=== PATIENT | male | born 1955 | race African-American/Black ===

== ENCOUNTER 2018-02-23 12:34 | Inpatient (IN) | payer BC, MEDICARE ==
[~2018-02-23] VITALS: Ht 170.2 cm; Wt 86.4 kg
[2018-02-23] MEDS ORDERED: LORAZEPAM 1MG TABLET PO ONE (13:15)
[2018-02-23] MEDS ORDERED: LORAZEPAM 2MG/ML CPJ IV ONE (15:00)
[2018-02-23] MEDS ORDERED: ENALAPRIL 2.5MG/2ML VIAL 2ML IV ONE (15:00)
[2018-02-23 15:30] LABS: CHLORIDE 103 mEq/L (98-107)
[2018-02-23 15:33] LABS: BASOPHILS % 0.3 % (0.0-2.0); EOSINOPHILS % 0.2 % (0.0-5.0); HEMATOCRIT. 37.4 % (42.0-52.0); HEMOGLOBIN. 12.6 g/dL (14.0-18.0); LYMPHOCYTES % 15.8 % (20.0-50.0); MEAN CORPUSCULAR VOLUME 79.9 fL (80.0-94.0); MONOCYTES % 7.8 % (2.0-8.0); NEUTROPHILS % 75.9 % (40.0-76.0); PLATELET 279 x1000/uL (130-400); RED BLOOD CELL COUNT 4.68 mill/uL (4.7-6.1); RED CELL DISTRIBUTION WIDTH 14.4 % (11.6-14.6)
[2018-02-23] MEDS ORDERED: ASPIRIN 81MG TABLET PO ONE (16:30)
[2018-02-23 16:54] LABS: INR 1.1; PARTIAL THROMBOPLASTIN TIME 26.4 sec (23.4-31.0); PROTHROMBIN TIME 10.8 sec (9.1-11.1)
[2018-02-23] MEDS ORDERED: IPRATROPIUM/ALBUTEROL 0.5-3(2.5)MG/3ML NEB INH PRN (17:30)
[2018-02-23] MEDS ORDERED: NA PHOS,M-B/NA PHOS,DI-BA ENEMA 118ML PR PRN (17:30)
[2018-02-23] MEDS ORDERED: DEXTROSE 50% WATER 50ML SYRINGE IV PRN (17:30)
[2018-02-23] MEDS ORDERED: GUAIFENESIN 200MG/10ML SUGAR FREE UDC PO PRN (17:30)
[2018-02-23] MEDS ORDERED: DOCUSATE SODIUM 100MG CAPSULE PO PRN (17:30)
[2018-02-23] MEDS ORDERED: NITROGLYCERIN 0.4MG TABLET SL SL PRN (17:30)
[2018-02-23] MEDS ORDERED: CLONIDINE 0.1MG TABLET PO PRN (17:30)
[2018-02-23] MEDS ORDERED: ONDANSETRON HCL 4MG/2ML INJ IV PRN (17:30)
[2018-02-23] MEDS ORDERED: LORAZEPAM 0.5MG TABLET PO PRN (17:30)
[2018-02-23] MEDS ORDERED: MAGNESIUM/ALUMINUM HYDROXIDE/SIMETHICONE 30ML UDC PO PRN (17:30)
[2018-02-23] MEDS: TRAMADOL 50MG TABLET PO PRN (18:58)
[2018-02-23 19:07] LABS: FOLIC ACID (FOLATE) SERUM >20 ng/mL ng/mL (>5.38)
[2018-02-23 19:18] LABS: VITAMIN B12 SERUM 1218 pg/mL (211-911)
[2018-02-23 19:41] LABS: METHADONE URINE SCREEN NEGATIVE (NEGATIVE); OPIATES URINE SCREEN PRESUMTIVE POSITIVE (NEGATIVE); PHENCYCLIDINE URINE SCREEN NEGATIVE (NEGATIVE)
[2018-02-23 19:42] LABS: *AMPHETAMINES SCREEN URINE NEGATIVE (NEGATIVE); *BARBITURATES SCREEN URINE NEGATIVE (NEGATIVE); *BENZODIAZEPINES SCREEN URINE NEGATIVE (NEGATIVE); *COCAINE SCREEN URINE NEGATIVE (NEGATIVE); CANNABINOID URINE SCREEN PRESUMTIVE POSITIVE (NEGATIVE)
[2018-02-23 22:00] VITALS: BP 176/81
[2018-02-23] MEDS: INSULIN LISPRO 100 UNITS/ML SUBCUT SCH (22:00)
[2018-02-23] MEDS ORDERED: ZOLPIDEM TARTRATE 5MG TABLET PO PRN (22:00)
[2018-02-23] MEDS: AMLODIPINE 10MG TABLET PO SCH (22:45)
[2018-02-23] MEDS: METOPROLOL TARTRATE 25MG TABLET PO SCH (22:45)
[2018-02-23] MEDS: HYDRALAZINE HCL 50MG TABLET PO SCH (22:45)
[2018-02-23] MEDS: ENOXAPARIN 30MG/0.3ML SYR SUBCUT SCH (22:46)
[2018-02-23] MEDS: BLOOD SUGAR DIAGNOSTIC STRIP TEST SCH (22:46)
[2018-02-23 23:47] LABS: CREATINE KINASE MB FRACTION 3.5 ng/mL (0.5-3.6)
[2018-02-23 23:58] LABS: CREATINE KINASE 1471 IU/L (39-308)
[2018-02-24] VITALS: BP_SYST 137; BP_SYST 177; BP_DIAS 78; BP_DIAS 87
[2018-02-24 04:00] VITALS: BP 170/77
[2018-02-24] MEDS: TRAMADOL 50MG TABLET PO PRN (04:03)
[2018-02-24] MEDS: BLOOD SUGAR DIAGNOSTIC STRIP TEST SCH ×4 (06:30→21:24)
[2018-02-24] MEDS: HYDRALAZINE HCL 50MG TABLET PO SCH ×3 (06:30→22:23)
[2018-02-24] MEDS: INSULIN LISPRO 100 UNITS/ML SUBCUT SCH ×4 (06:31→21:35)
[2018-02-24 08:00] VITALS: BP 165/81
[2018-02-24] MEDS: LORAZEPAM 1MG TABLET PO PRN ×2 (08:22→17:32)
[2018-02-24 08:35] LABS: CREATINE KINASE MB FRACTION 2.6 ng/mL (0.5-3.6)
[2018-02-24 08:47] LABS: CREATINE KINASE 1059 IU/L (39-308)
[2018-02-24] MEDS ORDERED: ASPIRIN 325MG EC TABLET PO SCH (09:00)
[2018-02-24] MEDS: METOPROLOL TARTRATE 25MG TABLET PO SCH ×2 (09:14→20:26)
[2018-02-24] MEDS: AMLODIPINE 10MG TABLET PO SCH (09:14)
[2018-02-24] MEDS: ENOXAPARIN 30MG/0.3ML SYR SUBCUT SCH (09:15)
[2018-02-24 12:00] VITALS: BP 143/67
[2018-02-24] MEDS: ACETAMINOPHEN 325MG TABLET PO PRN ×2 (12:51→19:14)
[2018-02-24 16:00] VITALS: BP 143/65
[2018-02-24 20:00] VITALS: BP 160/91
[2018-02-25] VITALS (40 sets, daily range): BP systolic 86–185; BP diastolic 41–143
[2018-02-25] MEDS: ACETAMINOPHEN 325MG TABLET PO PRN (04:57)
[2018-02-25] MEDS: HYDRALAZINE HCL 50MG TABLET PO SCH ×2 (06:52→13:25)
[2018-02-25] MEDS: BLOOD SUGAR DIAGNOSTIC STRIP TEST SCH ×2 (06:56→11:30)
[2018-02-25] MEDS: INSULIN LISPRO 100 UNITS/ML SUBCUT SCH ×2 (07:04→13:25)
[2018-02-25 07:28] LABS: BASOPHILS % 0.4 % (0.0-2.0); EOSINOPHILS % 0.5 % (0.0-5.0); HEMATOCRIT. 37.7 % (42.0-52.0); HEMOGLOBIN. 12.4 g/dL (14.0-18.0); LYMPHOCYTES % 17.7 % (20.0-50.0); MEAN CORPUSCULAR HEMOGLOBIN 26.5 pg (28.0-32.0); MEAN CORPUSCULAR VOLUME 80.5 fL (80.0-94.0); MONOCYTES % 9.6 % (2.0-8.0); NEUTROPHILS % 71.8 % (40.0-76.0); PLATELET 303 x1000/uL (130-400); RED BLOOD CELL COUNT 4.69 mill/uL (4.7-6.1); RED CELL DISTRIBUTION WIDTH 14.3 % (11.6-14.6)
[2018-02-25 07:47] LABS: CHLORIDE 102 mEq/L (98-107)
[2018-02-25] MEDS ORDERED: ENOXAPARIN 30MG/0.3ML SYR SUBCUT SCH (09:00)
[2018-02-25] MEDS: METOPROLOL TARTRATE 25MG TABLET PO SCH (09:00)
[2018-02-25] MEDS: AMLODIPINE 10MG TABLET PO SCH (10:25)
[2018-02-25] MEDS ORDERED: NICARDIPINE 100 MG in SODIUM CHLORIDE 0.9% 60 ML IV PRN ×2 (10:30→11:30)
[2018-02-25] MEDS ORDERED: DEXT 5%/LACTATED RINGERS 1,000 ML IV SCH (10:30)
[2018-02-25] MEDS: MORPHINE SULFATE 10 MG/ML CPJ IV PRN ×2 (10:41→14:50)
[2018-02-25] MEDS ORDERED: LEVETIRACETAM 500 MG in SODIUM CHLORIDE 0.9% 100 ML IV SCH (11:30)
[2018-02-25] MEDS ORDERED: FAMOTIDINE 20MG/2ML VIAL IV NR (16:15)
== END 2018-02-25 17:30 | disposition short-term general hospital (02) | DRG 64 ==
LOC: ER 12:56 → 5WST 16:30 → EDBEDREQ 16:34 → ENRESERV 19:56 → 5WST 02-24 08:36 → MICUSO 02-25 09:39
PROVIDERS: ADMIT Internal Medicine; ATTEND Internal Medicine
DX: I60.9 Nontraumatic subarachnoid hemorrhage, unspecified (principal); G82.50 Quadriplegia, unspecified; N17.9 Acute kidney failure, unspecified; M62.82 Rhabdomyolysis; I69.351 Hemiplegia and hemiparesis following cerebral infarction affecting right dominant side; N18.4 Chronic kidney disease, stage 4 (severe); F41.0 Panic disorder [episodic paroxysmal anxiety]; E11.65 Type 2 diabetes mellitus with hyperglycemia; D63.8 Anemia in other chronic diseases classified elsewhere; Z79.4 Long term (current) use of insulin; E11.22 Type 2 diabetes mellitus with diabetic chronic kidney disease; E78.00 Pure hypercholesterolemia, unspecified; E78.5 Hyperlipidemia, unspecified; F10.20 Alcohol dependence, uncomplicated; F32.9 Major depressive disorder, single episode, unspecified; G93.89 Other specified disorders of brain; I13.10 Hypertensive heart and chronic kidney disease without heart failure, with stage 1 through stage 4 chronic kidney disease, or unspecified chronic kidney disease; I25.10 Atherosclerotic heart disease of native coronary artery without angina pectoris; R26.9 Unspecified abnormalities of gait and mobility; Z79.899 Other long term (current) drug therapy; Z82.3 Family history of stroke; Z98.61 Coronary angioplasty status
CPT/HCPCS: 36415; 70544; 70551; 71045; 76770; 80048; 80061; 80305; 82550; 82553; 82607; 82746; 82962; 83036; 83540; 83550; 83880; 84443; 84484; 93005; 93306; 93970; 94640; 96374; 96375; 99285; J1650; J1815; J1953; J2060; J2270; J3490; J7050; J7121; J7620

== ENCOUNTER 2018-09-07 15:10 | Emergency (ER) | payer BC, MEDICARE ==
[~2018-09-07] VITALS: Ht 177.8 cm; Wt 86.0 kg
[2018-09-07] MEDS ORDERED: SODIUM CHLORIDE 0.9% 1,000 ML IV ONE (15:36)
[2018-09-07] MEDS ORDERED: LORAZEPAM 2MG/ML CPJ IV STA (15:36)
[2018-09-07 16:10] LABS: CHLORIDE 107 mEq/L (98-107)
[2018-09-07 16:15] LABS: ETHANOL BLOOD < 10 mg/dL
[2018-09-07 16:20] LABS: BASOPHILS % 0.9 % (0.0-2.0); EOSINOPHILS % 4.5 % (0.0-5.0); HEMATOCRIT. 31.5 % (42.0-52.0); HEMOGLOBIN. 10.3 g/dL (14.0-18.0); LYMPHOCYTES % 27.1 % (20.0-50.0); MEAN CORPUSCULAR HEMOGLOBIN 27.5 pg (28.0-32.0); MEAN CORPUSCULAR VOLUME 84.2 fL (80.0-94.0); MEAN PLATELET VOLUME 8.8 fl (7.4-10.4); MONOCYTES % 9.1 % (2.0-8.0); NEUTROPHILS % 58.4 % (40.0-76.0); PLATELET 95 x1000/uL (130-400); RED BLOOD CELL COUNT 3.74 mill/uL (4.7-6.1); RED CELL DISTRIBUTION WIDTH 15.1 % (11.6-14.6)
[2018-09-07 16:37] LABS: CLARITY URINE CLEAR (CLEAR); COLOR URINE YELLOW (YELLOW); KETONES URINE NEGATIVE (NEGATIVE); LEUKOCYTE ESTERASE URINE NEGATIVE (NEGATIVE); NITRITE URINE NEGATIVE (NEGATIVE); OCCULT BLOOD URINE NEGATIVE (NEGATIVE); PROTEIN URINE NEGATIVE (NEGATIVE); SPECIFIC GRAVITY URINE 1.023 (1.005-1.030); UROBILINOGEN URINE 0.2 E.U./dL (0.2-1.0)
[2018-09-07 17:07] LABS: *AMPHETAMINES SCREEN URINE NEGATIVE (NEGATIVE); *BARBITURATES SCREEN URINE NEGATIVE (NEGATIVE); *BENZODIAZEPINES SCREEN URINE NEGATIVE (NEGATIVE); *COCAINE SCREEN URINE NEGATIVE (NEGATIVE); METHADONE URINE SCREEN NEGATIVE (NEGATIVE)
[2018-09-07 17:08] LABS: CANNABINOID URINE SCREEN NEGATIVE (NEGATIVE); OPIATES URINE SCREEN NEGATIVE (NEGATIVE); PHENCYCLIDINE URINE SCREEN NEGATIVE (NEGATIVE)
[2018-09-07] MEDS ORDERED: INSULIN REGULAR (HUMULIN R) 300UNITS/3ML SUBCUT ONE (18:15)
[2018-09-07 21:31] VITALS: BP 157/81
== END 2018-09-07 22:19 | disposition home or self-care (01) ==
LOC: ER 15:10
DX: T42.6X1A Poisoning by other antiepileptic and sedative-hypnotic drugs, accidental (unintentional), initial encounter (principal); E11.65 Type 2 diabetes mellitus with hyperglycemia; N28.9 Disorder of kidney and ureter, unspecified; I11.0 Hypertensive heart disease with heart failure; I50.9 Heart failure, unspecified; F41.9 Anxiety disorder, unspecified; Z86.73 Personal history of transient ischemic attack (TIA), and cerebral infarction without residual deficits; Z98.890 Other specified postprocedural states
CPT/HCPCS: 36415; 80053; 80305; 80307; 80320; 80329; 81003; 85025; 93005; 96361; 96372; 96374; 99284; J1815; J2060; J7030; G0480

== ENCOUNTER 2019-04-20 09:21 | Inpatient (IN) | payer MEDICARE, BC, OTHER ==
[~2019-04-20] VITALS: Ht 167.6 cm; Wt 118.8 kg
[2019-04-20 10:58] LABS: BASOPHILS % 0.4 % (0.0-2.0); EOSINOPHILS % 4.5 % (0.0-5.0); HEMATOCRIT. 30.9 % (42.0-52.0); HEMOGLOBIN. 10.1 g/dL (14.0-18.0); LYMPHOCYTES % 27.2 % (20.0-50.0); MEAN CORPUSCULAR HEMOGLOBIN 26.1 pg (28.0-32.0); MEAN CORPUSCULAR VOLUME 79.5 fL (80.0-94.0); MEAN PLATELET VOLUME 7.9 fl (7.4-10.4); MONOCYTES % 7.9 % (2.0-8.0); PLATELET 200 x1000/uL (130-400); RED BLOOD CELL COUNT 3.88 mill/uL (4.7-6.1); RED CELL DISTRIBUTION WIDTH 15.5 % (11.6-14.6)
[2019-04-20 11:00] LABS: CHLORIDE 107 mEq/L (98-107)
[2019-04-20 11:01] LABS: PROTHROMBIN TIME 10.4 sec (9.6-11.0)
[2019-04-20] MEDS ORDERED: SODIUM CHLORIDE 0.9% 1,000 ML IV ONE (11:33)
[2019-04-20] MEDS ORDERED: DEXTROSE 50% WATER 50ML SYRINGE IV PRN (14:30)
[2019-04-20] MEDS ORDERED: ONDANSETRON HCL 4MG/2ML INJ IV PRN (14:30)
[2019-04-20] MEDS ORDERED: MECLIZINE 25MG TABLET PO PRN (14:30)
[2019-04-20] MEDS ORDERED: ACETAMINOPHEN 325MG TABLET PO PRN (14:30)
[2019-04-20] MEDS: SODIUM CHLORIDE 0.9% 1,000 ML IV SCH ×2 (15:19→18:48)
[2019-04-20] MEDS: BLOOD SUGAR DIAGNOSTIC STRIP TEST SCH ×2 (19:00→21:00)
[2019-04-20] MEDS: INSULIN LISPRO 100 UNITS/ML SUBCUT SCH (22:19)
[2019-04-20] MEDS: LORAZEPAM 2MG/ML CPJ IV PRN (22:21)
[2019-04-21 07:56] LABS: CLARITY URINE CLEAR (CLEAR); COLOR URINE YELLOW (YELLOW); KETONES URINE NEGATIVE (NEGATIVE); LEUKOCYTE ESTERASE URINE NEGATIVE (NEGATIVE); NITRITE URINE NEGATIVE (NEGATIVE); OCCULT BLOOD URINE NEGATIVE (NEGATIVE); PH URINE 6.5 (4.5-8.0); PROTEIN URINE NEGATIVE (NEGATIVE); SPECIFIC GRAVITY URINE 1.014 (1.005-1.030); UROBILINOGEN URINE 0.2 E.U./dL (0.2-1.0)
[2019-04-21 08:05] LABS: BASOPHILS % 0.6 % (0.0-2.0); EOSINOPHILS % 5.4 % (0.0-5.0); HEMATOCRIT. 29.7 % (42.0-52.0); HEMOGLOBIN. 9.9 g/dL (14.0-18.0); LYMPHOCYTES % 26.2 % (20.0-50.0); MEAN CORPUSCULAR HEMOGLOBIN 26.8 pg (28.0-32.0); MEAN CORPUSCULAR VOLUME 80.2 fL (80.0-94.0); MEAN PLATELET VOLUME 7.8 fl (7.4-10.4); NEUTROPHILS % 58.8 % (40.0-76.0); PLATELET 196 x1000/uL (130-400); RED CELL DISTRIBUTION WIDTH 15.8 % (11.6-14.6)
[2019-04-21 08:10] LABS: *AMPHETAMINES SCREEN URINE NEGATIVE (NEGATIVE); *BARBITURATES SCREEN URINE NEGATIVE (NEGATIVE); *BENZODIAZEPINES SCREEN URINE NEGATIVE (NEGATIVE); *COCAINE SCREEN URINE NEGATIVE (NEGATIVE)
[2019-04-21 08:11] LABS: CANNABINOID URINE SCREEN NEGATIVE (NEGATIVE); METHADONE URINE SCREEN NEGATIVE (NEGATIVE); OPIATES URINE SCREEN NEGATIVE (NEGATIVE); PHENCYCLIDINE URINE SCREEN NEGATIVE (NEGATIVE)
[2019-04-21] MEDS: INSULIN LISPRO 100 UNITS/ML SUBCUT SCH ×5 (08:20→21:00)
[2019-04-21] MEDS: BLOOD SUGAR DIAGNOSTIC STRIP TEST SCH ×4 (09:00→21:10)
[2019-04-21 09:21] VITALS: BP 159/75
[2019-04-21] MEDS: ENOXAPARIN 40MG/0.4ML SYR SUBCUT SCH (10:23)
[2019-04-21 12:00] VITALS: BP 141/76
[2019-04-21 16:00] VITALS: BP_SYST 134; BP_SYST 136; BP_SYST 146; BP_DIAS 65; BP_DIAS 78; BP_DIAS 79
[2019-04-21] MEDS: SODIUM CHLORIDE 0.9% 1,000 ML IV SCH (19:02)
[2019-04-21 20:00] VITALS: BP_SYST 140; BP_SYST 146; BP_DIAS 70; BP_DIAS 80
[2019-04-21] MEDS: ATORVASTATIN CALCIUM 40MG TABLET PO SCH ×2 (21:10→21:11)
[2019-04-22] VITALS (8 sets, daily range): BP systolic 115–175; BP diastolic 57–87
[2019-04-22] MEDS: SODIUM CHLORIDE 0.9% 1,000 ML IV SCH ×2 (05:28→20:39)
[2019-04-22 06:48] LABS: BASOPHILS % 0.5 % (0.0-2.0); EOSINOPHILS % 4.2 % (0.0-5.0); HEMATOCRIT. 28.9 % (42.0-52.0); HEMOGLOBIN. 9.6 g/dL (14.0-18.0); LYMPHOCYTES % 25.6 % (20.0-50.0); MEAN CORPUSCULAR HEMOGLOBIN 26.4 pg (28.0-32.0); MEAN CORPUSCULAR VOLUME 79.5 fL (80.0-94.0); MEAN PLATELET VOLUME 7.9 fl (7.4-10.4); MONOCYTES % 10.5 % (2.0-8.0); NEUTROPHILS % 59.2 % (40.0-76.0); PLATELET 204 x1000/uL (130-400); RED BLOOD CELL COUNT 3.64 mill/uL (4.7-6.1); RED CELL DISTRIBUTION WIDTH 15.6 % (11.6-14.6)
[2019-04-22] MEDS: BLOOD SUGAR DIAGNOSTIC STRIP TEST SCH ×4 (07:40→20:39)
[2019-04-22] MEDS: ENOXAPARIN 40MG/0.4ML SYR SUBCUT SCH (08:38)
[2019-04-22] MEDS: INSULIN LISPRO 100 UNITS/ML SUBCUT SCH ×4 (08:40→21:28)
[2019-04-22] MEDS: LORAZEPAM 2MG/ML CPJ IV PRN ×2 (14:22→22:30)
[2019-04-22] MEDS ORDERED: ASPI-1497 PO (19:18)
[2019-04-22] MEDS ORDERED: AMLO10TA80 PO (19:18)
[2019-04-22] MEDS ORDERED: ATOR40TA70 PO (19:18)
[2019-04-22] MEDS ORDERED: DIVA-73 PO (19:18)
[2019-04-22] MEDS ORDERED: FOLI-43 PO (19:18)
[2019-04-22] MEDS ORDERED: INSU100I28 SQ (19:18)
[2019-04-22] MEDS ORDERED: MAGN200T5 PO (19:18)
[2019-04-22] MEDS ORDERED: GABA-290 PO (19:18)
[2019-04-22] MEDS ORDERED: LINA5TAB PO (19:18)
[2019-04-22] MEDS ORDERED: PRAN2 MT (19:18)
[2019-04-22] MEDS ORDERED: OMEG-118 MT (19:18)
[2019-04-22] MEDS ORDERED: MULT-1146 PO (19:18)
[2019-04-22] MEDS ORDERED: PARO30TA62 PO (19:18)
[2019-04-22] MEDS ORDERED: CARV25TA47 PO (19:18)
[2019-04-22] MEDS ORDERED: PANT40TA4 PO (19:18)
[2019-04-22] MEDS ORDERED: THIA100T72 PO (19:18)
[2019-04-22] MEDS ORDERED: FERR325T22 PO (19:18)
[2019-04-22] MEDS ORDERED: CALC0.253 PO (19:18)
[2019-04-22] MEDS ORDERED: SAXA2.5T PO (19:18)
[2019-04-22] MEDS: ATORVASTATIN CALCIUM 40MG TABLET PO SCH (20:39)
[2019-04-22] MEDS: ASPIRIN 81MG EC TABLET PO SCH (20:41)
[2019-04-23] VITALS: BP 149/75
[2019-04-23 04:00] VITALS: BP 149/75
[2019-04-23] MEDS: BLOOD SUGAR DIAGNOSTIC STRIP TEST SCH (07:40)
[2019-04-23 08:30] VITALS: BP 137/56
[2019-04-23] MEDS: ASPIRIN 81MG EC TABLET PO SCH (09:18)
[2019-04-23] MEDS: INSULIN LISPRO 100 UNITS/ML SUBCUT SCH ×3 (09:20→17:55)
[2019-04-23] MEDS: ENOXAPARIN 40MG/0.4ML SYR SUBCUT SCH (09:23)
[2019-04-23 12:00] VITALS: BP 145/54
[2019-04-23 12:24] VITALS: BP 145/54
[2019-04-23] MEDS ORDERED: HYDROCODONE/ACETAMINOPHEN 10/325MG TABLET PO PRN (14:15)
[2019-04-23 17:23] VITALS: BP 159/82
[2019-04-23] MEDS: SODIUM CHLORIDE 0.9% 1,000 ML IV SCH (17:53)
[2019-04-23] MEDS ORDERED: ENOXAPARIN 30MG/0.3ML SYR SUBCUT SCH (21:00)
== END 2019-04-23 18:36 | DRG 73 ==
LOC: ER 11:17 → 7WST 12:32 → EDBEDREQTM 12:34 → EDBEDREQ 12:34 → ENRESERV 04-21 07:49
PROVIDERS: ADMIT Internal Medicine; ATTEND Internal Medicine
DX: G90.8 Other disorders of autonomic nervous system (principal); N17.0 Acute kidney failure with tubular necrosis; I13.0 Hypertensive heart and chronic kidney disease with heart failure and stage 1 through stage 4 chronic kidney disease, or unspecified chronic kidney disease; I69.351 Hemiplegia and hemiparesis following cerebral infarction affecting right dominant side; R47.01 Aphasia; E11.22 Type 2 diabetes mellitus with diabetic chronic kidney disease; I50.9 Heart failure, unspecified; N18.9 Chronic kidney disease, unspecified; E78.5 Hyperlipidemia, unspecified; R13.10 Dysphagia, unspecified; F41.9 Anxiety disorder, unspecified; D64.9 Anemia, unspecified; Z88.8 Allergy status to other drugs, medicaments and biological substances; Z79.899 Other long term (current) drug therapy
CPT/HCPCS: 36415; 70551; 71045; 80048; 80053; 80061; 80305; 81003; 82962; 84484; 85025; 92610; 93005; 93306; 93880; 97116; 97162; 97166; 97530; 99285; J1650; J1815; J2060; J7030

== ENCOUNTER 2019-04-23 18:40 | Inpatient (IN) | payer MEDICARE, BC, OTHER ==
[~2019-04-23] VITALS: Ht 167.6 cm; Wt 118.8 kg
[~2019-04-23 18:40] MED LIST: AMLO10TA80 PO; ASPI-1497 PO; ATOR40TA70 PO; CALC0.253 PO; CARV25TA47 PO; DIVA-73 PO; FERR325T22 PO; FOLI-43 PO; GABA-290 PO; INSU100I28 SQ; LINA5TAB PO; MAGN200T5 PO; MULT-1146 PO; OMEG-118 MT; PANT40TA4 PO; PARO30TA62 PO; PRAN2 MT; SAXA2.5T PO; THIA100T72 PO
[2019-04-23 20:00] VITALS: BP 141/63
[2019-04-23] MEDS ORDERED: ONDANSETRON HCL 4MG TABLET PO PRN (20:30)
[2019-04-23] MEDS ORDERED: LORAZEPAM 1MG TABLET PO PRN (20:30)
[2019-04-23] MEDS ORDERED: MECLIZINE 25MG TABLET PO PRN (20:30)
[2019-04-23] MEDS ORDERED: DEXTROSE 50% WATER 50ML SYRINGE IV PRN (20:30)
[2019-04-23] MEDS ORDERED: ACETAMINOPHEN 325MG TABLET PO PRN (20:30)
[2019-04-23] MEDS ORDERED: ENOXAPARIN 40MG/0.4ML SYR SUBCUT SCH (21:00)
[2019-04-23] MEDS: ATORVASTATIN CALCIUM 40MG TABLET PO SCH (21:01)
[2019-04-23] MEDS: HYDROCODONE/ACETAMINOPHEN 10/325MG TABLET PO PRN (21:01)
[2019-04-23] MEDS: ENOXAPARIN 30MG/0.3ML SYR SUBCUT SCH (21:02)
[2019-04-23] MEDS: BLOOD SUGAR DIAGNOSTIC STRIP TEST SCH (21:41)
[2019-04-23] MEDS: INSULIN LISPRO 100 UNITS/ML SUBCUT SCH (22:42)
[2019-04-23] MEDS: SODIUM CHLORIDE 0.9% 1,000 ML IV SCH (23:03)
[2019-04-24] MEDS: BLOOD SUGAR DIAGNOSTIC STRIP TEST SCH ×4 (06:33→20:24)
[2019-04-24] MEDS: INSULIN LISPRO 100 UNITS/ML SUBCUT SCH ×4 (06:33→21:34)
[2019-04-24 07:48] LABS: BASOPHILS % 0.5 % (0.0-2.0); EOSINOPHILS % 5.2 % (0.0-5.0); HEMATOCRIT. 29.7 % (42.0-52.0); HEMOGLOBIN. 9.8 g/dL (14.0-18.0); LYMPHOCYTES % 26.7 % (20.0-50.0); MEAN CORPUSCULAR HEMOGLOBIN 26.4 pg (28.0-32.0); MEAN PLATELET VOLUME 7.9 fl (7.4-10.4); MONOCYTES % 10.1 % (2.0-8.0); NEUTROPHILS % 57.5 % (40.0-76.0); PLATELET 190 x1000/uL (130-400); RED BLOOD CELL COUNT 3.71 mill/uL (4.7-6.1); RED CELL DISTRIBUTION WIDTH 15.6 % (11.6-14.6)
[2019-04-24 07:51] LABS: CHLORIDE 113 mEq/L (98-107)
[2019-04-24 09:06] VITALS: BP 152/74
[2019-04-24] MEDS: HYDROCODONE/ACETAMINOPHEN 10/325MG TABLET PO PRN ×2 (09:11→18:10)
[2019-04-24] MEDS: ASPIRIN 81MG TABLET PO SCH (09:11)
[2019-04-24] MEDS: ENOXAPARIN 30MG/0.3ML SYR SUBCUT SCH ×2 (09:12→20:23)
[2019-04-24] MEDS: SODIUM CHLORIDE 0.9% 1,000 ML IV SCH ×2 (09:14→23:21)
[2019-04-24] MEDS ORDERED: PNEUMOCOCCAL 23-VAL P-SAC VAC 0.5 ML IM ONE (12:00)
[2019-04-24] MEDS: PAROXETINE HCL 10MG TABLET PO SCH (12:57)
[2019-04-24] MEDS: LACTULOSE 20G/30ML UDC PO SCH ×2 (17:10→20:23)
[2019-04-24 18:09] VITALS: BP 161/88
[2019-04-24 20:00] VITALS: BP 159/81
[2019-04-24] MEDS: GABAPENTIN 300MG CAPSULE PO SCH (20:23)
[2019-04-24] MEDS: ATORVASTATIN CALCIUM 40MG TABLET PO SCH (20:23)
[2019-04-24] MEDS: BACLOFEN 10MG TABLET PO SCH (21:34)
[2019-04-25] MEDS: LACTULOSE 20G/30ML UDC PO SCH (00:27)
[2019-04-25] MEDS: HYDROCODONE/ACETAMINOPHEN 10/325MG TABLET PO PRN ×5 (02:03→22:39)
[2019-04-25] MEDS: BLOOD SUGAR DIAGNOSTIC STRIP TEST SCH ×4 (06:17→20:54)
[2019-04-25] MEDS: BACLOFEN 10MG TABLET PO SCH ×3 (06:17→21:13)
[2019-04-25] MEDS: INSULIN LISPRO 100 UNITS/ML SUBCUT SCH ×4 (06:27→21:43)
[2019-04-25 08:30] VITALS: BP 176/86
[2019-04-25] MEDS: ENOXAPARIN 30MG/0.3ML SYR SUBCUT SCH ×2 (08:30→20:54)
[2019-04-25] MEDS: PAROXETINE HCL 10MG TABLET PO SCH (08:33)
[2019-04-25] MEDS: ASPIRIN 81MG TABLET PO SCH (08:34)
[2019-04-25] MEDS: SODIUM CHLORIDE 0.9% 1,000 ML IV SCH ×2 (11:56→19:55)
[2019-04-25 14:11] VITALS: BP 160/82
[2019-04-25 18:35] VITALS: BP 164/65
[2019-04-25 20:00] VITALS: BP 140/62
[2019-04-25] MEDS: AMLODIPINE 5MG TABLET PO SCH (20:54)
[2019-04-25] MEDS: GABAPENTIN 300MG CAPSULE PO SCH (20:54)
[2019-04-25] MEDS: ATORVASTATIN CALCIUM 40MG TABLET PO SCH (20:54)
[2019-04-26] MEDS: BLOOD SUGAR DIAGNOSTIC STRIP TEST SCH ×4 (05:29→21:05)
[2019-04-26] MEDS: BACLOFEN 10MG TABLET PO SCH ×3 (05:29→21:06)
[2019-04-26] MEDS: HYDROCODONE/ACETAMINOPHEN 10/325MG TABLET PO PRN ×3 (05:34→19:30)
[2019-04-26] MEDS: INSULIN LISPRO 100 UNITS/ML SUBCUT SCH (06:24)
[2019-04-26 07:03] LABS: BASOPHILS % 0.5 % (0.0-2.0); EOSINOPHILS % 3.9 % (0.0-5.0); HEMATOCRIT. 27.2 % (42.0-52.0); HEMOGLOBIN. 9.2 g/dL (14.0-18.0); LYMPHOCYTES % 15.5 % (20.0-50.0); MEAN CORPUSCULAR HEMOGLOBIN 26.8 pg (28.0-32.0); MEAN CORPUSCULAR VOLUME 79.6 fL (80.0-94.0); MEAN PLATELET VOLUME 8.2 fl (7.4-10.4); MONOCYTES % 8.3 % (2.0-8.0); NEUTROPHILS % 71.8 % (40.0-76.0); PLATELET 188 x1000/uL (130-400); RED BLOOD CELL COUNT 3.42 mill/uL (4.7-6.1); RED CELL DISTRIBUTION WIDTH 15.1 % (11.6-14.6)
[2019-04-26 08:00] VITALS: BP 167/70
[2019-04-26 09:02] LABS: CHLORIDE 112 mEq/L (98-107)
[2019-04-26 09:07] LABS: PHOSPHORUS 2.4 mg/dL (2.5-4.9)
[2019-04-26] MEDS: ASPIRIN 81MG TABLET PO SCH (09:43)
[2019-04-26] MEDS: PAROXETINE HCL 10MG TABLET PO SCH (09:43)
[2019-04-26] MEDS: AMLODIPINE 5MG TABLET PO SCH ×2 (09:43→21:05)
[2019-04-26] MEDS: ENOXAPARIN 30MG/0.3ML SYR SUBCUT SCH ×2 (09:44→21:05)
[2019-04-26] MEDS ORDERED: INSULIN LISPRO (LOW DOSE) 100 UNITS/ML SUBCUT SCH (13:00)
[2019-04-26] MEDS ORDERED: INSULIN LISPRO 100 UNITS/ML SUBCUT SCH (13:00)
[2019-04-26 13:23] LABS: T4 FREE 1.01 ng/dL (0.76-1.46)
[2019-04-26] MEDS: LACTULOSE 20G/30ML UDC PO SCH ×2 (13:23→21:06)
[2019-04-26] MEDS: LINAGLIPTIN 5MG TABLET PO SCH (13:24)
[2019-04-26] MEDS: REPAGLINIDE 1MG TABLET PO SCH ×2 (13:24→18:24)
[2019-04-26] MEDS: INSULIN LISPRO (LOW DOSE) 100 UNITS/ML SUBCUT SCH ×2 (13:34→17:00)
[2019-04-26] MEDS: SODIUM CHLORIDE 0.9% 1,000 ML IV SCH (16:09)
[2019-04-26 20:00] VITALS: BP 159/67
[2019-04-26] MEDS: ATORVASTATIN CALCIUM 40MG TABLET PO SCH (21:05)
[2019-04-26] MEDS: GABAPENTIN 300MG CAPSULE PO SCH (21:05)
[2019-04-26] MEDS: INSULIN GLARGINE UD 100 UNITS/ML SYR SUBCUT SCH (21:21)
[2019-04-27] MEDS: HYDROCODONE/ACETAMINOPHEN 10/325MG TABLET PO PRN ×4 (01:44→23:24)
[2019-04-27] MEDS: SODIUM CHLORIDE 0.9% 1,000 ML IV SCH ×2 (03:53→17:16)
[2019-04-27] MEDS: BLOOD SUGAR DIAGNOSTIC STRIP TEST SCH ×4 (05:42→21:28)
[2019-04-27] MEDS: LACTULOSE 20G/30ML UDC PO SCH ×3 (05:42→21:44)
[2019-04-27] MEDS: BACLOFEN 10MG TABLET PO SCH ×3 (05:42→21:44)
[2019-04-27] MEDS: INSULIN LISPRO (LOW DOSE) 100 UNITS/ML SUBCUT SCH ×3 (06:45→17:00)
[2019-04-27 08:00] VITALS: BP 151/78
[2019-04-27] MEDS: AMLODIPINE 5MG TABLET PO SCH ×2 (10:19→20:49)
[2019-04-27] MEDS: ASPIRIN 81MG TABLET PO SCH (10:19)
[2019-04-27] MEDS: REPAGLINIDE 1MG TABLET PO SCH ×3 (10:19→17:09)
[2019-04-27] MEDS: PAROXETINE HCL 10MG TABLET PO SCH (10:20)
[2019-04-27] MEDS: LINAGLIPTIN 5MG TABLET PO SCH (10:20)
[2019-04-27] MEDS: ENOXAPARIN 30MG/0.3ML SYR SUBCUT SCH ×2 (13:19→20:49)
[2019-04-27 20:00] VITALS: BP 141/54
[2019-04-27] MEDS: ATORVASTATIN CALCIUM 40MG TABLET PO SCH (20:49)
[2019-04-27] MEDS: GABAPENTIN 300MG CAPSULE PO SCH (20:49)
[2019-04-27] MEDS: INSULIN GLARGINE UD 100 UNITS/ML SYR SUBCUT SCH (21:45)
[2019-04-28] MEDS: BACLOFEN 10MG TABLET PO SCH ×3 (05:17→21:08)
[2019-04-28] MEDS: LACTULOSE 20G/30ML UDC PO SCH ×3 (05:17→21:08)
[2019-04-28] MEDS: BLOOD SUGAR DIAGNOSTIC STRIP TEST SCH ×4 (06:26→21:50)
[2019-04-28] MEDS: INSULIN LISPRO (LOW DOSE) 100 UNITS/ML SUBCUT SCH ×3 (06:33→16:27)
[2019-04-28 07:04] LABS: BASOPHILS % 0.3 % (0.0-2.0); EOSINOPHILS % 4.6 % (0.0-5.0); HEMOGLOBIN. 9.7 g/dL (14.0-18.0); LYMPHOCYTES % 17.6 % (20.0-50.0); MEAN CORPUSCULAR HEMOGLOBIN 26.6 pg (28.0-32.0); MEAN CORPUSCULAR VOLUME 79.5 fL (80.0-94.0); MEAN PLATELET VOLUME 7.9 fl (7.4-10.4); MONOCYTES % 9.4 % (2.0-8.0); NEUTROPHILS % 68.1 % (40.0-76.0); PLATELET 196 x1000/uL (130-400); RED BLOOD CELL COUNT 3.65 mill/uL (4.7-6.1); RED CELL DISTRIBUTION WIDTH 15.3 % (11.6-14.6)
[2019-04-28] MEDS: SODIUM CHLORIDE 0.9% 1,000 ML IV SCH ×2 (07:10→22:15)
[2019-04-28 07:35] LABS: CHLORIDE 111 mEq/L (98-107)
[2019-04-28] MEDS: REPAGLINIDE 1MG TABLET PO SCH ×3 (08:31→16:41)
[2019-04-28] MEDS: HYDROCODONE/ACETAMINOPHEN 10/325MG TABLET PO PRN ×3 (08:32→18:49)
[2019-04-28] MEDS: PAROXETINE HCL 10MG TABLET PO SCH (08:33)
[2019-04-28] MEDS: ASPIRIN 81MG TABLET PO SCH (08:33)
[2019-04-28] MEDS: ENOXAPARIN 30MG/0.3ML SYR SUBCUT SCH ×2 (08:33→21:07)
[2019-04-28] MEDS: LINAGLIPTIN 5MG TABLET PO SCH (08:33)
[2019-04-28] MEDS: AMLODIPINE 5MG TABLET PO SCH ×2 (08:33→21:08)
[2019-04-28 08:45] VITALS: BP 143/63
[2019-04-28 20:00] VITALS: BP 142/71
[2019-04-28] MEDS: GABAPENTIN 300MG CAPSULE PO SCH (21:07)
[2019-04-28] MEDS: ATORVASTATIN CALCIUM 40MG TABLET PO SCH (21:07)
[2019-04-28] MEDS: INSULIN GLARGINE UD 100 UNITS/ML SYR SUBCUT SCH (21:55)
[2019-04-29] MEDS: HYDROCODONE/ACETAMINOPHEN 10/325MG TABLET PO PRN ×3 (02:57→15:31)
[2019-04-29] MEDS: BACLOFEN 10MG TABLET PO SCH ×3 (06:09→22:15)
[2019-04-29] MEDS: LACTULOSE 20G/30ML UDC PO SCH ×3 (06:09→22:00)
[2019-04-29] MEDS: BLOOD SUGAR DIAGNOSTIC STRIP TEST SCH ×4 (06:15→21:00)
[2019-04-29] MEDS: INSULIN LISPRO (LOW DOSE) 100 UNITS/ML SUBCUT SCH ×3 (06:15→16:54)
[2019-04-29 08:00] VITALS: BP 184/88
[2019-04-29] MEDS: PAROXETINE HCL 10MG TABLET PO SCH (08:58)
[2019-04-29] MEDS: REPAGLINIDE 1MG TABLET PO SCH ×3 (08:58→17:11)
[2019-04-29] MEDS: ENOXAPARIN 30MG/0.3ML SYR SUBCUT SCH ×2 (08:58→22:16)
[2019-04-29] MEDS: ASPIRIN 81MG TABLET PO SCH (08:58)
[2019-04-29] MEDS: AMLODIPINE 5MG TABLET PO SCH ×2 (08:58→22:15)
[2019-04-29] MEDS: LINAGLIPTIN 5MG TABLET PO SCH (08:58)
[2019-04-29 09:00] VITALS: BP 153/76
[2019-04-29] MEDS: SODIUM CHLORIDE 0.9% 1,000 ML IV SCH (09:25)
[2019-04-29] MEDS ORDERED: MORPHINE SULFATE/PF 1MG/ML 10ML AMP ONE (12:38)
[2019-04-29] MEDS ORDERED: BUPIVACAINE/EPINEPH/PF 0.25%/0.0005 10ML ONE (12:38)
[2019-04-29 13:06] LABS: ALPHA-1-GLOBULIN 0.2 g/dL (0.0-0.4); ALPHA-2-GLOBULIN 0.9 g/dL (0.4-1.0); GLOBULIN TOTAL 3.1 g/dL (2.2-3.9); M-SPIKE Not Observed g/dL (Not Observed); TOTAL PROTEIN SERUM 6.1 g/dL (6.0-8.5)
[2019-04-29 20:00] VITALS: BP 146/54
[2019-04-29] MEDS: ATORVASTATIN CALCIUM 40MG TABLET PO SCH (22:14)
[2019-04-29] MEDS: GABAPENTIN 300MG CAPSULE PO SCH (22:15)
[2019-04-29] MEDS: INSULIN GLARGINE UD 100 UNITS/ML SYR SUBCUT SCH (23:17)
[2019-04-30] MEDS: SODIUM CHLORIDE 0.9% 1,000 ML IV SCH ×2 (02:42→14:07)
[2019-04-30] MEDS: LACTULOSE 20G/30ML UDC PO SCH (06:00)
[2019-04-30] MEDS: HYDROCODONE/ACETAMINOPHEN 10/325MG TABLET PO PRN ×3 (06:46→22:23)
[2019-04-30] MEDS: BACLOFEN 10MG TABLET PO SCH ×3 (06:46→22:19)
[2019-04-30] MEDS: BLOOD SUGAR DIAGNOSTIC STRIP TEST SCH ×4 (06:47→21:00)
[2019-04-30] MEDS: INSULIN LISPRO (LOW DOSE) 100 UNITS/ML SUBCUT SCH ×3 (06:47→17:00)
[2019-04-30 08:09] LABS: 25-HYDROXY VITAMIN D3 34 ng/mL (.)
[2019-04-30 08:30] VITALS: BP 143/61
[2019-04-30] MEDS: ASPIRIN 81MG TABLET PO SCH (09:58)
[2019-04-30] MEDS: ENOXAPARIN 30MG/0.3ML SYR SUBCUT SCH ×2 (09:58→22:21)
[2019-04-30] MEDS: LINAGLIPTIN 5MG TABLET PO SCH (09:59)
[2019-04-30] MEDS: REPAGLINIDE 1MG TABLET PO SCH ×4 (09:59→17:41)
[2019-04-30] MEDS: AMLODIPINE 5MG TABLET PO SCH ×2 (10:07→22:20)
[2019-04-30] MEDS: PAROXETINE HCL 10MG TABLET PO SCH (10:07)
[2019-04-30] MEDS ORDERED: LACTULOSE 20G/30ML UDC PO SCH (22:00)
[2019-04-30] MEDS: ATORVASTATIN CALCIUM 40MG TABLET PO SCH (22:18)
[2019-04-30] MEDS: GABAPENTIN 300MG CAPSULE PO SCH (22:19)
[2019-04-30] MEDS: INSULIN GLARGINE UD 100 UNITS/ML SYR SUBCUT SCH (22:22)
[2019-04-30 23:34] VITALS: BP 123/72
[2019-05-01] MEDS: SODIUM CHLORIDE 0.9% 1,000 ML IV SCH ×2 (00:29→15:05)
[2019-05-01] MEDS: BACLOFEN 10MG TABLET PO SCH ×3 (06:18→23:59)
[2019-05-01] MEDS: BLOOD SUGAR DIAGNOSTIC STRIP TEST SCH ×4 (06:18→21:00)
[2019-05-01] MEDS: INSULIN LISPRO (LOW DOSE) 100 UNITS/ML SUBCUT SCH ×3 (06:18→17:00)
[2019-05-01 06:50] LABS: CHLORIDE 113 mEq/L (98-107)
[2019-05-01 07:03] LABS: BASOPHILS % 0.6 % (0.0-2.0); EOSINOPHILS % 4.8 % (0.0-5.0); HEMATOCRIT. 28.7 % (42.0-52.0); HEMOGLOBIN. 9.5 g/dL (14.0-18.0); LYMPHOCYTES % 26.2 % (20.0-50.0); MEAN CORPUSCULAR HEMOGLOBIN 26.5 pg (28.0-32.0); MEAN CORPUSCULAR VOLUME 79.9 fL (80.0-94.0); MEAN PLATELET VOLUME 7.8 fl (7.4-10.4); MONOCYTES % 11.5 % (2.0-8.0); NEUTROPHILS % 56.9 % (40.0-76.0); PLATELET 206 x1000/uL (130-400); RED BLOOD CELL COUNT 3.59 mill/uL (4.7-6.1); RED CELL DISTRIBUTION WIDTH 15.3 % (11.6-14.6)
[2019-05-01 08:00] VITALS: BP 146/65
[2019-05-01] MEDS: ASPIRIN 81MG TABLET PO SCH (08:33)
[2019-05-01] MEDS: LINAGLIPTIN 5MG TABLET PO SCH (08:34)
[2019-05-01] MEDS: ENOXAPARIN 30MG/0.3ML SYR SUBCUT SCH ×2 (08:34→22:02)
[2019-05-01] MEDS: PAROXETINE HCL 10MG TABLET PO SCH (08:34)
[2019-05-01] MEDS: AMLODIPINE 5MG TABLET PO SCH ×2 (08:34→23:57)
[2019-05-01] MEDS: REPAGLINIDE 1MG TABLET PO SCH ×3 (08:34→17:17)
[2019-05-01] MEDS: HYDROCODONE/ACETAMINOPHEN 10/325MG TABLET PO PRN (15:09)
[2019-05-01 20:00] VITALS: BP 135/65
[2019-05-01] MEDS: INSULIN GLARGINE UD 100 UNITS/ML SYR SUBCUT SCH (22:00)
[2019-05-01] MEDS: ERGOCALCIFEROL 50000UNITS CAPSULE PO SCH (23:54)
[2019-05-01] MEDS: ATORVASTATIN CALCIUM 40MG TABLET PO SCH (23:54)
[2019-05-01] MEDS: GABAPENTIN 300MG CAPSULE PO SCH (23:55)
[2019-05-02] MEDS: HYDROCODONE/ACETAMINOPHEN 10/325MG TABLET PO PRN ×2 (00:04→18:01)
[2019-05-02] MEDS: SODIUM CHLORIDE 0.9% 1,000 ML IV SCH ×2 (04:54→16:59)
[2019-05-02] MEDS: BLOOD SUGAR DIAGNOSTIC STRIP TEST SCH ×4 (06:38→20:17)
[2019-05-02] MEDS: BACLOFEN 10MG TABLET PO SCH ×3 (06:40→21:51)
[2019-05-02] MEDS: INSULIN LISPRO (LOW DOSE) 100 UNITS/ML SUBCUT SCH ×3 (06:46→16:57)
[2019-05-02 08:30] VITALS: BP 143/55
[2019-05-02] MEDS: ENOXAPARIN 30MG/0.3ML SYR SUBCUT SCH ×2 (08:45→20:17)
[2019-05-02] MEDS: LINAGLIPTIN 5MG TABLET PO SCH (08:46)
[2019-05-02] MEDS: ASPIRIN 81MG TABLET PO SCH (08:46)
[2019-05-02] MEDS: REPAGLINIDE 1MG TABLET PO SCH ×3 (08:46→16:57)
[2019-05-02] MEDS: AMLODIPINE 5MG TABLET PO SCH ×2 (08:46→20:16)
[2019-05-02] MEDS: PAROXETINE HCL 10MG TABLET PO SCH (08:46)
[2019-05-02 20:00] VITALS: BP 137/56
[2019-05-02] MEDS: ATORVASTATIN CALCIUM 40MG TABLET PO SCH (20:16)
[2019-05-02] MEDS: GABAPENTIN 300MG CAPSULE PO SCH (20:16)
[2019-05-02] MEDS: INSULIN GLARGINE UD 100 UNITS/ML SYR SUBCUT SCH (21:55)
[2019-05-03] MEDS: SODIUM CHLORIDE 0.9% 1,000 ML IV SCH ×2 (03:30→21:20)
[2019-05-03] MEDS: BLOOD SUGAR DIAGNOSTIC STRIP TEST SCH ×4 (06:11→20:53)
[2019-05-03] MEDS: BACLOFEN 10MG TABLET PO SCH ×3 (06:11→21:21)
[2019-05-03] MEDS: INSULIN LISPRO 100 UNITS/ML SUBCUT SCH ×3 (06:11→16:26)
[2019-05-03 08:30] VITALS: BP 139/65
[2019-05-03] MEDS: AMLODIPINE 5MG TABLET PO SCH ×2 (09:21→20:53)
[2019-05-03] MEDS: ENOXAPARIN 30MG/0.3ML SYR SUBCUT SCH ×2 (09:21→20:53)
[2019-05-03] MEDS: LINAGLIPTIN 5MG TABLET PO SCH (09:22)
[2019-05-03] MEDS: ASPIRIN 81MG TABLET PO SCH (09:22)
[2019-05-03] MEDS: REPAGLINIDE 1MG TABLET PO SCH ×3 (09:22→16:26)
[2019-05-03] MEDS: PAROXETINE HCL 10MG TABLET PO SCH (09:22)
[2019-05-03] MEDS: HYDROCODONE/ACETAMINOPHEN 10/325MG TABLET PO PRN (16:46)
[2019-05-03] MEDS ORDERED: HYDROCODONE/ACETAMINOPHEN 10/325MG TABLET PO PRN (19:15)
[2019-05-03 20:00] VITALS: BP 148/76
[2019-05-03] MEDS: ATORVASTATIN CALCIUM 40MG TABLET PO SCH (20:52)
[2019-05-03] MEDS: GABAPENTIN 300MG CAPSULE PO SCH (20:52)
[2019-05-03] MEDS: RIFAXIMIN 550 MG TABLET PO SCH (20:53)
[2019-05-03] MEDS: INSULIN GLARGINE UD 100 UNITS/ML SYR SUBCUT SCH (21:21)
[2019-05-04] MEDS: BLOOD SUGAR DIAGNOSTIC STRIP TEST SCH ×4 (05:28→21:08)
[2019-05-04] MEDS: INSULIN LISPRO 100 UNITS/ML SUBCUT SCH ×3 (05:28→16:54)
[2019-05-04] MEDS: BACLOFEN 10MG TABLET PO SCH ×3 (05:28→20:47)
[2019-05-04 06:23] LABS: CHLORIDE 113 mEq/L (98-107)
[2019-05-04 06:41] LABS: BASOPHILS % 0.5 % (0.0-2.0); EOSINOPHILS % 3.8 % (0.0-5.0); HEMATOCRIT. 27.5 % (42.0-52.0); HEMOGLOBIN. 9.4 g/dL (14.0-18.0); LYMPHOCYTES % 25.4 % (20.0-50.0); MEAN CORPUSCULAR HEMOGLOBIN 26.9 pg (28.0-32.0); MEAN CORPUSCULAR VOLUME 78.6 fL (80.0-94.0); MEAN PLATELET VOLUME 7.7 fl (7.4-10.4); MONOCYTES % 10.4 % (2.0-8.0); NEUTROPHILS % 59.9 % (40.0-76.0); PLATELET 235 x1000/uL (130-400); RED BLOOD CELL COUNT 3.49 mill/uL (4.7-6.1); RED CELL DISTRIBUTION WIDTH 15.5 % (11.6-14.6)
[2019-05-04 08:30] VITALS: BP 148/62
[2019-05-04] MEDS: AMLODIPINE 5MG TABLET PO SCH ×2 (08:30→19:36)
[2019-05-04] MEDS: REPAGLINIDE 1MG TABLET PO SCH ×3 (08:30→16:54)
[2019-05-04] MEDS: PAROXETINE HCL 10MG TABLET PO SCH (08:30)
[2019-05-04] MEDS: ENOXAPARIN 30MG/0.3ML SYR SUBCUT SCH ×2 (08:31→20:47)
[2019-05-04] MEDS: ASPIRIN 81MG TABLET PO SCH (08:31)
[2019-05-04] MEDS: LINAGLIPTIN 5MG TABLET PO SCH (08:31)
[2019-05-04] MEDS: RIFAXIMIN 550 MG TABLET PO SCH ×2 (08:31→20:46)
[2019-05-04] MEDS: SODIUM CHLORIDE 0.9% 1,000 ML IV SCH ×2 (10:07→22:12)
[2019-05-04 20:00] VITALS: BP 150/80
[2019-05-04] MEDS: ATORVASTATIN CALCIUM 40MG TABLET PO SCH (20:46)
[2019-05-04] MEDS: GABAPENTIN 300MG CAPSULE PO SCH (20:46)
[2019-05-04] MEDS: INSULIN GLARGINE UD 100 UNITS/ML SYR SUBCUT SCH (21:09)
[2019-05-04 22:00] VITALS: BP 132/78
[2019-05-05] MEDS: BACLOFEN 10MG TABLET PO SCH ×3 (05:19→21:35)
[2019-05-05] MEDS: BLOOD SUGAR DIAGNOSTIC STRIP TEST SCH ×4 (06:32→21:36)
[2019-05-05 07:30] VITALS: BP 141/62
[2019-05-05] MEDS: INSULIN LISPRO 100 UNITS/ML SUBCUT SCH ×3 (08:23→16:23)
[2019-05-05] MEDS: PAROXETINE HCL 10MG TABLET PO SCH (08:35)
[2019-05-05] MEDS: LINAGLIPTIN 5MG TABLET PO SCH (08:35)
[2019-05-05] MEDS: REPAGLINIDE 1MG TABLET PO SCH ×3 (08:36→17:00)
[2019-05-05] MEDS: ASPIRIN 81MG TABLET PO SCH (08:36)
[2019-05-05] MEDS: RIFAXIMIN 550 MG TABLET PO SCH ×2 (08:36→21:35)
[2019-05-05] MEDS: ENOXAPARIN 30MG/0.3ML SYR SUBCUT SCH ×2 (08:36→21:36)
[2019-05-05] MEDS: AMLODIPINE 5MG TABLET PO SCH ×2 (08:36→21:35)
[2019-05-05] MEDS: LACTULOSE 20G/30ML UDC PO SCH (17:22)
[2019-05-05] MEDS: SODIUM CHLORIDE 0.9% 1,000 ML IV SCH (17:28)
[2019-05-05 20:00] VITALS: BP 140/48
[2019-05-05] MEDS: GABAPENTIN 300MG CAPSULE PO SCH (21:35)
[2019-05-05] MEDS: ATORVASTATIN CALCIUM 40MG TABLET PO SCH (21:35)
[2019-05-05] MEDS: INSULIN GLARGINE UD 100 UNITS/ML SYR SUBCUT SCH (22:00)
[2019-05-06] MEDS: BLOOD SUGAR DIAGNOSTIC STRIP TEST SCH ×4 (06:45→21:11)
[2019-05-06] MEDS: BACLOFEN 10MG TABLET PO SCH ×3 (06:45→21:11)
[2019-05-06] MEDS: INSULIN LISPRO 100 UNITS/ML SUBCUT SCH ×3 (06:50→17:00)
[2019-05-06] MEDS: SODIUM CHLORIDE 0.9% 1,000 ML IV SCH ×2 (06:53→19:10)
[2019-05-06 08:06] VITALS: BP 144/62
[2019-05-06] MEDS: ENOXAPARIN 30MG/0.3ML SYR SUBCUT SCH ×2 (08:43→21:11)
[2019-05-06] MEDS: REPAGLINIDE 1MG TABLET PO SCH ×3 (08:44→19:10)
[2019-05-06] MEDS: LACTULOSE 20G/30ML UDC PO SCH (08:44)
[2019-05-06] MEDS: AMLODIPINE 5MG TABLET PO SCH ×2 (08:44→21:10)
[2019-05-06] MEDS: ASPIRIN 81MG TABLET PO SCH (08:44)
[2019-05-06] MEDS: RIFAXIMIN 550 MG TABLET PO SCH ×2 (08:44→21:10)
[2019-05-06] MEDS: PAROXETINE HCL 10MG TABLET PO SCH (08:45)
[2019-05-06] MEDS: LINAGLIPTIN 5MG TABLET PO SCH (08:45)
[2019-05-06 20:00] VITALS: BP 145/71
[2019-05-06] MEDS: ATORVASTATIN CALCIUM 40MG TABLET PO SCH (21:10)
[2019-05-06] MEDS: GABAPENTIN 300MG CAPSULE PO SCH (21:10)
[2019-05-06] MEDS: INSULIN GLARGINE UD 100 UNITS/ML SYR SUBCUT SCH (22:05)
[2019-05-07] MEDS: BACLOFEN 10MG TABLET PO SCH ×3 (06:37→21:25)
[2019-05-07] MEDS: BLOOD SUGAR DIAGNOSTIC STRIP TEST SCH ×4 (06:37→21:24)
[2019-05-07] MEDS: INSULIN LISPRO 100 UNITS/ML SUBCUT SCH ×3 (06:37→16:41)
[2019-05-07 08:00] VITALS: BP 142/71
[2019-05-07] MEDS: LACTULOSE 20G/30ML UDC PO SCH (10:18)
[2019-05-07] MEDS: ENOXAPARIN 30MG/0.3ML SYR SUBCUT SCH ×2 (10:18→21:24)
[2019-05-07] MEDS: REPAGLINIDE 1MG TABLET PO SCH ×3 (10:19→17:31)
[2019-05-07] MEDS: AMLODIPINE 5MG TABLET PO SCH ×2 (10:19→21:25)
[2019-05-07] MEDS: ASPIRIN 81MG TABLET PO SCH (10:19)
[2019-05-07] MEDS: RIFAXIMIN 550 MG TABLET PO SCH (10:19)
[2019-05-07] MEDS: PAROXETINE HCL 10MG TABLET PO SCH (10:19)
[2019-05-07] MEDS: LINAGLIPTIN 5MG TABLET PO SCH (10:20)
[2019-05-07 20:00] VITALS: BP 137/58
[2019-05-07] MEDS: ATORVASTATIN CALCIUM 40MG TABLET PO SCH (21:25)
[2019-05-07] MEDS: GABAPENTIN 300MG CAPSULE PO SCH (21:25)
[2019-05-07] MEDS: INSULIN GLARGINE UD 100 UNITS/ML SYR SUBCUT SCH (21:39)
[2019-05-08] MEDS: BLOOD SUGAR DIAGNOSTIC STRIP TEST SCH ×4 (06:30→21:51)
[2019-05-08] MEDS: INSULIN LISPRO 100 UNITS/ML SUBCUT SCH ×3 (07:00→16:39)
[2019-05-08] MEDS: BACLOFEN 10MG TABLET PO SCH ×3 (07:37→21:50)
[2019-05-08 08:00] VITALS: BP 114/53
[2019-05-08] MEDS: ERGOCALCIFEROL 50000UNITS CAPSULE PO SCH (08:39)
[2019-05-08] MEDS: LINAGLIPTIN 5MG TABLET PO SCH (08:39)
[2019-05-08] MEDS: REPAGLINIDE 1MG TABLET PO SCH ×3 (08:39→16:39)
[2019-05-08] MEDS: PAROXETINE HCL 10MG TABLET PO SCH (08:39)
[2019-05-08] MEDS: AMLODIPINE 5MG TABLET PO SCH ×2 (08:40→21:50)
[2019-05-08] MEDS: ASPIRIN 81MG TABLET PO SCH (08:40)
[2019-05-08] MEDS: ENOXAPARIN 30MG/0.3ML SYR SUBCUT SCH ×2 (08:40→21:51)
[2019-05-08] MEDS: LACTULOSE 20G/30ML UDC PO SCH (08:41)
[2019-05-08 20:00] VITALS: BP 150/53
[2019-05-08] MEDS: ATORVASTATIN CALCIUM 40MG TABLET PO SCH (21:50)
[2019-05-08] MEDS: GABAPENTIN 300MG CAPSULE PO SCH (21:50)
[2019-05-08] MEDS: INSULIN GLARGINE UD 100 UNITS/ML SYR SUBCUT SCH (21:59)
[2019-05-09] MEDS: BACLOFEN 10MG TABLET PO SCH ×3 (06:37→22:10)
[2019-05-09] MEDS: BLOOD SUGAR DIAGNOSTIC STRIP TEST SCH ×4 (06:37→21:00)
[2019-05-09] MEDS: INSULIN LISPRO 100 UNITS/ML SUBCUT SCH ×3 (06:38→16:04)
[2019-05-09 07:28] LABS: BASOPHILS % 0.8 % (0.0-2.0); EOSINOPHILS % 3.6 % (0.0-5.0); HEMATOCRIT. 30.2 % (42.0-52.0); HEMOGLOBIN. 10.1 g/dL (14.0-18.0); LYMPHOCYTES % 22.6 % (20.0-50.0); MEAN CORPUSCULAR HEMOGLOBIN 26.4 pg (28.0-32.0); MEAN CORPUSCULAR VOLUME 79.2 fL (80.0-94.0); MEAN PLATELET VOLUME 7.6 fl (7.4-10.4); MONOCYTES % 6.9 % (2.0-8.0); NEUTROPHILS % 66.1 % (40.0-76.0); PLATELET 271 x1000/uL (130-400); RED BLOOD CELL COUNT 3.81 mill/uL (4.7-6.1); RED CELL DISTRIBUTION WIDTH 15.3 % (11.6-14.6)
[2019-05-09 07:45] LABS: CHLORIDE 111 mEq/L (98-107)
[2019-05-09 08:09] VITALS: BP 127/67
[2019-05-09] MEDS: REPAGLINIDE 1MG TABLET PO SCH ×3 (08:25→16:04)
[2019-05-09] MEDS: ENOXAPARIN 30MG/0.3ML SYR SUBCUT SCH ×2 (08:25→21:07)
[2019-05-09] MEDS: ASPIRIN 81MG TABLET PO SCH (08:25)
[2019-05-09] MEDS: LINAGLIPTIN 5MG TABLET PO SCH (08:25)
[2019-05-09] MEDS: PAROXETINE HCL 10MG TABLET PO SCH (08:26)
[2019-05-09] MEDS: AMLODIPINE 5MG TABLET PO SCH ×2 (08:26→21:00)
[2019-05-09] MEDS: LACTULOSE 20G/30ML UDC PO SCH (08:26)
[2019-05-09] MEDS ORDERED: BACL-141 PO (15:56)
[2019-05-09] MEDS ORDERED: PARO10TA74 PO (15:56)
[2019-05-09] MEDS ORDERED: LIP40 PO (15:56)
[2019-05-09] MEDS ORDERED: LINA5TAB PO (15:56)
[2019-05-09] MEDS ORDERED: AMLO5TAB88 PO (15:56)
[2019-05-09] MEDS ORDERED: GABA-531 PO (15:56)
[2019-05-09] MEDS ORDERED: PRAN1 PO (15:56)
[2019-05-09 20:00] VITALS: BP 109/84
[2019-05-09] MEDS: ATORVASTATIN CALCIUM 40MG TABLET PO SCH (21:07)
[2019-05-09] MEDS: GABAPENTIN 300MG CAPSULE PO SCH (21:08)
[2019-05-09] MEDS: INSULIN GLARGINE UD 100 UNITS/ML SYR SUBCUT SCH (22:00)
[2019-05-10] MEDS: BLOOD SUGAR DIAGNOSTIC STRIP TEST SCH ×2 (06:25→11:15)
[2019-05-10] MEDS: INSULIN LISPRO 100 UNITS/ML SUBCUT SCH ×2 (06:26→13:00)
[2019-05-10] MEDS: BACLOFEN 10MG TABLET PO SCH ×2 (06:33→13:05)
[2019-05-10 08:00] VITALS: BP 125/63
[2019-05-10] MEDS: ENOXAPARIN 30MG/0.3ML SYR SUBCUT SCH (09:39)
[2019-05-10] MEDS: REPAGLINIDE 1MG TABLET PO SCH ×2 (09:40→13:05)
[2019-05-10] MEDS: LACTULOSE 20G/30ML UDC PO SCH (09:40)
[2019-05-10] MEDS: PAROXETINE HCL 10MG TABLET PO SCH (09:41)
[2019-05-10] MEDS: ASPIRIN 81MG TABLET PO SCH (09:41)
[2019-05-10] MEDS: LINAGLIPTIN 5MG TABLET PO SCH (09:41)
[2019-05-10 12:44] VITALS: BP 125/63
[2019-05-10] MEDS: AMLODIPINE 5MG TABLET PO SCH (13:10)
== END 2019-05-10 17:53 | disposition home health service (06) | DRG 57 ==
PROVIDERS: ADMIT Physical Medicine & Rehabilitation Spinal Cord Injury Medicine; ATTEND Internal Medicine
DX: I69.351 Hemiplegia and hemiparesis following cerebral infarction affecting right dominant side (principal); G45.9 Transient cerebral ischemic attack, unspecified; E46 Unspecified protein-calorie malnutrition; Z68.41 Body mass index [BMI] 40.0-44.9, adult; G93.40 Encephalopathy, unspecified; I13.0 Hypertensive heart and chronic kidney disease with heart failure and stage 1 through stage 4 chronic kidney disease, or unspecified chronic kidney disease; N17.9 Acute kidney failure, unspecified; F33.1 Major depressive disorder, recurrent, moderate; E72.20 Disorder of urea cycle metabolism, unspecified; E11.22 Type 2 diabetes mellitus with diabetic chronic kidney disease; E11.65 Type 2 diabetes mellitus with hyperglycemia; E66.9 Obesity, unspecified; E78.5 Hyperlipidemia, unspecified; E87.8 Other disorders of electrolyte and fluid balance, not elsewhere classified; I50.9 Heart failure, unspecified; J45.909 Unspecified asthma, uncomplicated; M48.061 Spinal stenosis, lumbar region without neurogenic claudication; R13.10 Dysphagia, unspecified; D50.9 Iron deficiency anemia, unspecified; E55.9 Vitamin D deficiency, unspecified; F01.50 Vascular dementia, unspecified severity, without behavioral disturbance, psychotic disturbance, mood disturbance, and anxiety; F41.1 Generalized anxiety disorder; N18.3 Chronic kidney disease, stage 3 (moderate); Z60.2 Problems related to living alone; R47.1 Dysarthria and anarthria; M19.90 Unspecified osteoarthritis, unspecified site; M24.50 Contracture, unspecified joint; M47.816 Spondylosis without myelopathy or radiculopathy, lumbar region; I69.320 Aphasia following cerebral infarction; Z79.84 Long term (current) use of oral hypoglycemic drugs; Z80.6 Family history of leukemia; Z87.891 Personal history of nicotine dependence; Z82.49 Family history of ischemic heart disease and other diseases of the circulatory system; Z83.3 Family history of diabetes mellitus; Z88.8 Allergy status to other drugs, medicaments and biological substances; Z79.899 Other long term (current) drug therapy; Z79.82 Long term (current) use of aspirin; Z71.3 Dietary counseling and surveillance; Z95.5 Presence of coronary angioplasty implant and graft
CPT/HCPCS: 36415; 72148; 73560; 80048; 80053; 80076; 82024; 82140; 82248; 82306; 82533; 82607; 82962; 83036; 83735; 84100; 84134; 84155; 84165; 84439; 84443; 85025; 90732; 92523; 92610; 93970; 97110; 97112; 97116; 97150; 97162; 97166; 97530; 97535; J0171; J1650; J1815; J2274; J7030

== ENCOUNTER 2020-10-01 14:51 | Emergency (ER) | payer MEDICARE, BC, OTHER ==
[~2020-10-01] VITALS: Ht 175.3 cm; Wt 100.0 kg
[~2020-10-01 14:51] MED LIST changes: +AMLO5TAB88 PO; +BACL-141 PO; -CARV25TA47 PO; +GABA-532 PO; +LIP40 PO; -PANT40TA4 PO; +PANT40TA51 PO; +PARO10TA74 PO; +PRAN1 PO
[2020-10-01 17:50] VITALS: BP 150/78
== END 2020-10-01 17:50 | disposition home or self-care (01) ==
LOC: ER 15:04
DX: Z00.00 Encounter for general adult medical examination without abnormal findings (principal); F43.9 Reaction to severe stress, unspecified; I11.0 Hypertensive heart disease with heart failure; I50.9 Heart failure, unspecified; F41.9 Anxiety disorder, unspecified; Z86.73 Personal history of transient ischemic attack (TIA), and cerebral infarction without residual deficits; Z79.899 Other long term (current) drug therapy; Z88.6 Allergy status to analgesic agent
CPT/HCPCS: 93005; 99283